=== PATIENT | female | born 1955 | race Hispanic/Latino ===

== ENCOUNTER → 2023-04-27 | Outpatient (CLI) | payer OTHER ==
[~2023-04-27] MED LIST: ALPR-409 PO; ASPI-556 PO; BUTA1CAP53 PO; CYCL5TAB PO; ESOM40CA PO; MECL-226 PO; NAPR220C15 PO
== END | disposition home or self-care (01) ==
LOC: RAH 08:44
PROVIDERS: ATTEND Internal Medicine Interventional Cardiology
DX: Z13.6 Encounter for screening for cardiovascular disorders (principal)
CPT/HCPCS: 75571